=== PATIENT | female | born 1990 | race Caucasian/White ===

== ENCOUNTER 2018-03-10 11:36 | Emergency (ER) | payer SELFPAY ==
[~2018-03-10] VITALS: Ht 154.9 cm; Wt 54.4 kg
[2018-03-10] MEDS ORDERED: LIDOCAINE700 M1 TP (12:11)
[2018-03-10] MEDS ORDERED: ROBAXIN500 MG PO (12:11)
[2018-03-10] MEDS ORDERED: TYLENOL EXTRA500 MG ORAL (12:11)
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
[2018-03-10] MEDS ORDERED: Methocarbamol 500mg tab ORAL ONE (12:15)
[2018-03-10 12:27] VITALS: BP 107/70
[2018-03-10 12:32] VITALS: BP 107/70
== END 2018-03-10 12:32 | disposition home or self-care (01) ==
LOC: EMR 12:25
DX: M54.2 Cervicalgia (principal); M54.5 Low back pain; V43.62XA Car passenger injured in collision with other type car in traffic accident, initial encounter; Y92.410 Unspecified street and highway as the place of occurrence of the external cause
CPT/HCPCS: 99283